=== PATIENT | female | born 1935 | race Caucasian/White ===

== ENCOUNTER → 2017-05-29 | Outpatient (CLI) | payer BC, MEDICARE ==
[2015-05-19 08:10] VITALS: BP 135/75
[~2017-05-29] MED LIST: ACET80TA52 PO; AMLO5TAB2 PO; ASCO500T PO; CETI10TA22 PO; CETI1TAB7 PO; CLIN75CA2 PO; FERR-26 PO; HYDR-2165 PO; HYDR12.53 PO; HYDR12.58 PO; IOHEXOL 240 MG/ML 50ML VIAL. PO ONE; IOHEXOL 300 MG/ML 75 ML VIAL IV ONE; LISI2.5T PO; LISI40TA PO; MECL12.52 PO; METO1TAB28 PO; METO50TA2 PO; MONT10TA6 PO; MONT4GRA2 PO; OMEP10CA3 PO; OMEP40CA5 PO; PANT40TA3 PO; SENN8.6C2 PO; SODI88SP5 NS; SUCR1ORA11 PO
[2017-05-29 09:34] LABS: CREATININE 0.6 mg/dL (0.6-1.0); GFR 95.9
--- NOTE | 2017-05-29 11:42 | RAD ---
CT chest, abdomen and pelvis with contrast 05/29/2017. Indication: Lymphoma Comparison: Head CT 05/25/2016, 10/28/2015 Technique: Multiple axial CT images of the chest, abdomen and pelvis were obtained without intravenous contrast. Coronal and sagittal reformats are provided. 75 mL of Omnipaque 300 were administered intravenously. Findings: There is a 4 mm hypodense nodule in the right thyroid gland. There are no pathologically enlarged lymph nodes in the axilla, mediastinum or hilar regions. Heart is borderline enlarged. Thoracic aorta is normal in course and caliber. Descending thoracic aorta measures 3.6 cm. Normal anatomic variant branching of the thoracic aorta and brachycephalic vessels is noted with a gastroesophageal aberrant right subclavian artery. Small diverticula is identified at the base of the aberrant right subclavian artery. There is no pericardial effusion. Three-vessel coronary artery vascular calcic dictation is present. No suspicious pulmonary nodules are identified. There is subsegmental atelectasis at the left lung base. No pleural effusions, pulmonary vascular congestion or pneumothorax. Abdomen/pelvis: Liver is homogeneous without evidence for focal mass lesion. Spleen, right adrenal gland, and pancreas are normal in appearance. There is mild fusiform thickening of the medial limb of the left adrenal gland, stable. Gallbladder is present without radiopaque gallstones. The abdominal aorta is normal in course and caliber with moderate atherosclerotic desiccation. There are no pathologically enlarged lymph nodes in the abdomen or pelvis. There is no free intraperitoneal air or free fluid. The kidneys enhance symmetrically. A small extrarenal pelvis is identified on the right. Suspect a 3 mm nonobstructing calculus in the inferior pole the left kidney. No calculi are identified in the ureters or urinary bladder. Urinary bladder is within normal limits given degree of distention. Small and large bowel are normal in caliber without evidence for bowel obstruction. Oral contrast was administered. Opacified small bowel loops are normal without focal wall thickening. Diverticulosis of the sigmoid colon is identified without adjacent inflammatory changes to suggest diverticulitis. Terminal ileum is normal in appearance. Appendix is not definitively visualized, however there are inflammatory changes in the right lower quadrant. There is a patulous esophagus with a small hiatal hernia. There is a small right inguinal hernia containing fat. No pelvic masses are identified. No suspicious osseous lesions are identified. There is grade 1 anterolisthesis of L4 on L5, likely secondary to advanced facet arthropathy. Impression: 1. No pathologically enlarged lymph nodes are identified in the chest, abdomen or pelvis to suggest disease recurrence. 2. Suspect a 3 mm nonobstructing calculus in the inferior pole the left kidney. No hydronephrosis. Small extrarenal pelvis is identified on the right. 3. Diverticulosis without adjacent inflammatory changes to suggest diverticulitis. 4. Small hiatal hernia. 5. Grade 1 anterolisthesis of L4 on L5, likely secondary to advanced facet arthropathy. No suspicious osseous lesions are identified. PQRS Compliance Statement: One or more of the following individualized dose reduction techniques were utilized for this examination: 1. Automated exposure control 2. Adjustment of the mA and/or kV according to patient size 3. Use of iterative reconstruction technique
== END ==
LOC: CT 09:31
PROVIDERS: ATTEND Internal Medicine Hematology & Oncology
DX: E04.1 Nontoxic single thyroid nodule (principal); K44.9 Diaphragmatic hernia without obstruction or gangrene; K57.30 Diverticulosis of large intestine without perforation or abscess without bleeding; Z87.891 Personal history of nicotine dependence
CPT/HCPCS: 36415; 71260; 74177; 82565; Q9966; Q9967

== ENCOUNTER → 2017-09-17 | Outpatient (CLI) | payer BC | END | disposition home or self-care (01) | LOC: RAD 09:49 | DX: M16.11 Unilateral primary osteoarthritis, right hip (principal); M25.751 Osteophyte, right hip | CPT/HCPCS: 73502 ==

== ENCOUNTER → 2018-03-19 | Outpatient (CLI) | payer BC ==
[2015-05-19 08:10] VITALS: BP 135/75
[~2018-03-19] MED LIST changes: +ACET80TA38 PO; -ACET80TA52 PO; -FERR-26 PO; +FERR325T14 PO; -IOHEXOL 240 MG/ML 50ML VIAL. PO ONE; -IOHEXOL 300 MG/ML 75 ML VIAL IV ONE; +LISI-130 PO; -LISI40TA PO; -METO50TA2 PO; +METO50TA6 PO
--- NOTE | 2018-03-19 17:30 | RAD ---
History: Right ankle and foot pain and swelling. No known injury. Comparison: None. Findings: AP, lateral, and oblique views of the right ankle. Lateral ankle soft tissue swelling is seen. No acute fracture or dislocation is identified. Mild tibiotalar degeneration is seen. Small plantar calcaneal and Achilles tendon insertional enthesophytes are seen. Arterial calcifications are present. AP, lateral, and oblique views of the right foot. Moderate-severe hallux valgus is seen. Mild 1st MTP degeneration is seen. Small ossific density is seen adjacent to the 1st metatarsal head, may be small displaced osteophyte. No acute fracture or dislocation is identified. Mild midfoot degeneration is seen. Impression: 1. No acute osseous traumatic injury identified in the right ankle or right foot. 2. Lateral ankle soft tissue swelling. 3. Mild tibiotalar degeneration. 4. Moderate-severe hallux valgus. Electronically signed by: Moe Parker MD (03/19/2018 5:26 PM) [email or web address]
== END | disposition home or self-care (01) ==
LOC: RAD 12:44
PROVIDERS: ATTEND Internal Medicine
DX: M79.89 Other specified soft tissue disorders (principal); M20.11 Hallux valgus (acquired), right foot; M19.071 Primary osteoarthritis, right ankle and foot; E55.9 Vitamin D deficiency, unspecified; E78.5 Hyperlipidemia, unspecified; I12.9 Hypertensive chronic kidney disease with stage 1 through stage 4 chronic kidney disease, or unspecified chronic kidney disease; N18.2 Chronic kidney disease, stage 2 (mild); Z86.2 Personal history of diseases of the blood and blood-forming organs and certain disorders involving the immune mechanism; Z87.891 Personal history of nicotine dependence; Z90.710 Acquired absence of both cervix and uterus
CPT/HCPCS: 73610; 73630

== ENCOUNTER → 2018-05-14 | Outpatient (CLI) | payer BC ==
[2015-05-19 08:10] VITALS: BP 135/75
[~2018-05-14] MED LIST changes: -AMLO5TAB2 PO; +AMLO5TAB7 PO
--- NOTE | 2018-05-14 11:18 | CARD ---
MR#: [id number] Date of Study: 05/14/2018 Ordering Physician: IRWIN SIM, Referring Physician: IRWIN SIM, Tech: Suma Rosales RDCS APPROVED REPORT EXAM: Two-dimensional and M-mode echocardiogram with Doppler and color Doppler. Other Information Quality : Fair INDICATION Exertional Dyspnea 2D DIMENSIONS RVDd2.9 (2.9-3.5cm)Left Atrium(2D)4.0 (1.6-4.0cm) IVSd1.3 (0.7-1.1cm)Aortic Root(2D)2.3 (2.0-3.7cm) LVDd3.6 (3.9-5.9cm)LVOT Diameter2.0 (1.8-2.4cm) PWd1.2 (0.7-1.1cm)LVDs2.2 (2.5-4.0cm) FS (%) 30.0 %SV39.6 ml LVEF(%)60.0 (>50%) Aortic Valve AoV Peak Hugo.132.8cm/sAoV VTI32.7cm AO Peak GR.7.1mmHgLVOT Peak Hugo.83.1cm/s LVOT VTI 21.17cmAO Mean GR.4mmHg LOUISE (VMAX)2.26rj6GTN (VTI)2.09cm2 Mitral Valve MV E Bnsxvcfe634.5cm/sMV DECEL ODVP055pl MV A Zacisdef87.2cm/sMV JOO74up E/A Ratio1.2MVA (PHT)3.39cm2 TDI E/Lateral E'20.4E/Medial E'20.4 Tricuspid Valve TR P. Yirrwhix515fa/sRAP FUOZQQLE9daWr TR Peak Gr.06kkXcVFCB82caTy Pulmonary Vein S1 Adtmpbya56.6cm/sD2 Uqitwcid92.4cm/s LEFT VENTRICLE The left ventricle is normal size. There is mild concentric left ventricular hypertrophy. The left ve ntricular systolic function is normal . The Ejection Fraction is 60-65%. There is normal LV segmental wall motion. Transmitral Doppler flow pattern is Grade II-pseudonormal filling dynamics. RIGHT VENTRICLE The right ventricle is normal size. The right ventricular systolic function is normal. ATRIA The left atrium is mildly dilated. The right atrium is mildly dilated. 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 There is no Doppler evidence for an atrial septal defect. AORTIC VALVE The aortic valve is calcified but opens well. Doppler and Color Flow revealed trace aortic regurgitat ion. There is no significant aortic valvular stenosis. MITRAL VALVE The mitral valve is mildly thickened but opens well. Posterior mitral annular calcification is mild. There is no evidence of mitral valve prolapse. There is no mitral valve stenosis. Doppler and Color-f low revealed mild mitral regurgitation. TRICUSPID VALVE The tricuspid valve is normal in structure and function. Doppler and Color Flow revealed mild tricusp id regurgitation. There is moderate pulmonary hypertension. The PA pressure was estimated at 41 mmHg. There is no tricuspid valve stenosis. PULMONIC VALVE The pulmonic valve is not well visualized. Doppler and Color Flow revealed trace to mild pulmonic shantelle vular regurgitation. There is no pulmonic valvular stenosis. GREAT VESSELS The aortic root is normal in size. The ascending aorta is mildly dilated at 3.4 cm. The IVC is normal in size and collapses >50% with inspiration. PERICARDIAL EFFUSION There is no evidence of significant pericardial effusion. Critical Notification Critical Value: No <Conclusion> The left ventricular systolic function is normal . The Ejection Fraction is 60-65%. There is normal LV segmental wall motion. The interatrial septum is aneurysmal. There is no Doppler evidence for an atrial septal defect. The left atrium is mildly dilated. Mild mitral regurgitation. Mild tricuspid regurgitation. The PA pressure was estimated at 41 mmHg. There is no evidence of significant pericardial effusion. Signed by : Grupo Salazar, Electronically Approved : 05/14/2018 11:17:34
--- NOTE | 2018-05-15 08:29 | RAD ---
MR#: [id number] Date of Study: 05/14/2018 Ordering Physician: IRWIN SIM, Referring Physician: IRWIN SIM, Tech: CALLI Bah, RDKS, RTR APPROVED REPORT Patient Location : OUT-PATIENT Indications Lower Extremity Pain : Bilateral Findings Grayscale images of the bilateral greater and lesser saphenous veins were obtained for evidence of re flux. No obvious thrombus is noted on limited imaging. The right great saphenous vein measures 7.7 mm and does not show any evidence of reflux. The left gre at saphenous vein measures 7.9 mm and does not show any evidence of reflux. The left small saphenous vein is not visualized and the right small saphenous vein does not reveal an y evidence of reflux Critical Notification Critical Value: No <Conclusion> Negative for reflux in the bilateral greater and lesser saphenous veins Signed by : Carlito Reeder, Electronically Approved : 05/15/2018 08:28:34
--- NOTE | 2018-05-15 08:36 | RAD ---
MR#: [id number] Date of Study: 05/14/2018 Ordering Physician: IRWIN SIM, Referring Physician: IRWIN SIM, Tech: CALLI Bah, RDMS, RTR APPROVED REPORT Patient Location: OUT-PATIENT Indications Rest Pain:Bilaterally VELOCITY AND DOPPLER WAVEFORM ANALYSIS RIGHT cm/secWaveformSeverity LEFT cm/secWaveform Severity pCFA 83.4TriphasicpCFA 110.1Biphasic Prof Fem Art. 75.2 Prof Fem Art. 113.8 Fem Art Prox. 95.4BiphasicFem Art Prox. 79.5Biphasic Fem Art Mid. 73.0BiphasicFem Art Mid. 73.3Biphasic Fem Art Dist. 71.6BiphasicFem Art Dist. 53.6Biphasic Pop Art(Fossa) 62.5BiphasicPop Art(AK) 63.6Biphasic SOFTWARE CLERK Dist. 23.9MonophasicPTA Dist. 22.1Monophasic Per Art Dist.41.6BiphasicPer Art Dist.43.0Biphasic OLEG Dist. 86.2TriphasicATA Dist. 54.2Biphasic DPA 72TriphasicDPA 113Biphasic Findings Grayscale images of the bilateral lower extremity arterial vessels reveal mild diffuse anthracotic pl aque. Spectral waveforms from the common femoral to the below-knee vessels are mostly triphasic and biphasi c in nature. Velocities are within normal limits. Of note, the bilateral posterior tibial vessels demonstrate diminished monophasic waveforms suggestiv e either of a congenitally diminutive posterior tibial artery versus bilateral posterior tibial obstr uctive disease. Nonetheless, there is 2 vessel runoff below the knee. Critical Notification Critical Value: No <Conclusion> 1. No high-grade flow limiting stenosis above the knee. Suspect either congenitally diminutive waterfront director ior tibials versus occluded posterior tibials bilaterally with 2 vessel runoff below the knee. Signed by : Carlito Reeder, Electronically Approved : 05/15/2018 08:35:56
--- NOTE | 2018-05-15 08:43 | RAD ---
MR#: [id number] Date of Study: 05/14/2018 Ordering Physician: IRWIN SIM, Referring Physician: IRWIN SIM, Tech: CALLI Bah, [facility], RTR APPROVED REPORT Bilateral Lower Extremity Venous Study for DVT Patient Location: OUT-PATIENT Indications Lower Extremity Pain: Lower Extremity Edema: Findings The bilateral lower extremity deep veins were evaluated for thrombus with color Doppler, spectral and grayscale images. On the right the grayscale images of the common femoral, superficial femoral and popliteal veins do n ot demonstrate any evidence of thrombus and these veins appear to be compressible. The below-knee vei ns were not well visualized but grossly appear to be compressible. Spectral imaging and color Doppler do not reveal any evidence of obstruction to flow with normal respirophasic variation above the knee . Below the knee there is spontaneous flow noted. On the left, the grayscale images of the common femoral, superficial femoral and popliteal veins do n ot demonstrate any evidence of thrombus and these veins appear to be compressible. The below-knee vei ns again were not well visualized but grossly appear to be compressible. Spectral imaging and color D oppler do not reveal any evidence of obstruction to flow with normal respirophasic variation above th e knee. The below-knee veins demonstrate spontaneous flow. Critical Notification Critical Value: No <Conclusion> Technically limited images but grossly no evidence of bilateral lower extremity DVT Signed by : Carlito Reeder, Electronically Approved : 05/15/2018 08:42:29
== END | disposition home or self-care (01) ==
LOC: ECHO 08:48
PROVIDERS: ATTEND Internal Medicine Cardiovascular Disease
DX: I08.1 Rheumatic disorders of both mitral and tricuspid valves (principal); I27.20 Pulmonary hypertension, unspecified; M79.604 Pain in right leg; M79.605 Pain in left leg; R22.42 Localized swelling, mass and lump, left lower limb; R22.41 Localized swelling, mass and lump, right lower limb
CPT/HCPCS: 93306; 93925; 93970

== ENCOUNTER → 2019-11-21 | Outpatient (CLI) | payer BC ==
[2015-05-19 08:10] VITALS: BP 135/75
[~2019-11-21] MED LIST changes: +AMLO5TAB10 PO; -AMLO5TAB7 PO; +ASCO-219 PO; -ASCO500T PO; -CETI10TA22 PO; +CETI10TA24 PO; -HYDR12.53 PO; +HYDR12.575 PO; -MECL12.52 PO; +MECL12.573 PO; +MONT10TA49 PO; -MONT10TA6 PO; -OMEP10CA3 PO; +OMEP10CA4 PO; +OMEP40CA45 PO; -OMEP40CA5 PO; -PANT40TA3 PO; +PANT40TA77 PO; -SUCR1ORA11 PO; +SUCR1ORA14 PO
--- NOTE | 2019-11-21 13:00 | KCIC ---
Examination: HIP LEFT 2 VIEW History: Chronic left hip pain Comparison/Correlation: None Findings: Frontal view of the left hip and frog-leg lateral view of the left upper provided. Marked osteopenia is present. Left hip joint space is normal. Spurring about the left acetabulum is present. No displaced fracture or bone destruction. Vascular calcifications are present. Impression: No acute process. Consider further evaluation with MRI or CT if occult fracture or other suspicious occult process is a persistent concern. Electronically signed by: Roel Pascual MD (11/21/2019 12:57 PM) [id number]
== END | disposition home or self-care (01) ==
LOC: KCIC 12:21
PROVIDERS: ATTEND Internal Medicine
DX: M85.88 Other specified disorders of bone density and structure, other site (principal); M77.8 Other enthesopathies, not elsewhere classified
CPT/HCPCS: 73502

== ENCOUNTER → 2019-12-17 | Outpatient (CLI) | payer BC ==
[2015-05-19 08:10] VITALS: BP 135/75
[~2019-12-17] MED LIST changes: -ASCO-219 PO; +ASCO500T53 PO
--- NOTE | 2019-12-17 11:38 | RAD ---
LUMBAR SPINE WO CONTRAST History: Low back pain. Left leg radiculopathy. Technique: Multiplanar, multi sequential MR imaging was performed of the lumbar spine. Comparison: June 25, 2014 Findings: Grade 1 anterolisthesis L4 on L5. Mild retrolisthesis L1 on L2 and L2 on L3. Normal vertebral body height. No fracture. Degenerative endplate edema most prominent L2-L3. Edema within the left L5 pedicle, likely due to degenerative changes. Conus terminates at the normal location. No evidence of nerve root clumping. T12-L1: Broad-based disc bulge. Minimal canal narrowing. Moderate facet arthropathy. Mild neuroforaminal narrowing. L1-L2: Broad-based disc bulge. Moderate facet arthropathy. Moderate to severe canal narrowing. Mild bilateral neuroforaminal narrowing. L2-L3: Broad-based disc bulge. Moderate facet arthropathy. Severe canal narrowing. Mild bilateral neuroforaminal narrowing. L3-L4: Broad-based disc bulge. Advanced facet arthropathy. Moderate to severe canal narrowing. Moderate bilateral neuroforaminal narrowing. Anterolisthesis. Disc uncovering. L4-L5: Broad-based disc bulge with superimposed left foraminal disc protrusion. Advanced facet arthropathy. Severe canal narrowing with nerve root compression of the thecal sac. Moderate right and severe left neuroforaminal narrowing. L5-S1: Small disc bulge. Mild facet arthropathy. No canal narrowing. No neuroforaminal narrowing. Compared with the prior examination the degenerative findings and canal narrowing as well as neuroforaminal narrowing are progressed. Impression: 1. Advanced multilevel lumbar spondylosis, progressed compared to 2014. 2. Grade 1 anterolisthesis L4 on L5 contributing to severe canal narrowing with nerve root compression in the thecal sac. 3. Additional multilevel moderate to severe canal narrowing L1-L2, L2-L3 and L3-L4. 4. Multilevel neural foraminal narrowing most severe left L4-L5. Electronically signed by: Tima Elizondo DO (12/17/2019 11:35 AM) [id number]
== END | disposition home or self-care (01) ==
LOC: MRI 10:12
PROVIDERS: ATTEND Orthopaedic Surgery
DX: M47.25 Other spondylosis with radiculopathy, thoracolumbar region (principal); M47.26 Other spondylosis with radiculopathy, lumbar region; M47.27 Other spondylosis with radiculopathy, lumbosacral region; M48.061 Spinal stenosis, lumbar region without neurogenic claudication
CPT/HCPCS: 72148

== ENCOUNTER → 2020-01-14 | Outpatient (CLI) | payer BC ==
[2015-05-19 08:10] VITALS: BP 135/75
[~2020-01-14] MED LIST changes: +BIOT1CAP3 PO; +CINN500C2 PO; +IOHEXOL 180 MG/ML 10 ML VIAL. ONE; +OMEG1CAP38 PO; +TURM500C4 PO; +Vitamin d3; +WOMENS MULTIVITAMIN; +methylPREDNISolone ACETATE 40 MG/ML VIAL. ONE; +methylPREDNISolone ACETATE 80 MG/ML VIAL. ONE
--- NOTE | 2020-01-14 13:14 | PAIN ---
DATE OF SERVICE: 01/14/2020 INITIAL CONSULTATION FOR PAIN CLINIC CHIEF COMPLAINT: Low back and left lower extremity pain. HISTORY OF PRESENT ILLNESS: This is an 84-year-old female who presents with history of pain in the low back and left lower extremity for many years, worse over the past year or two. The patient has had previous MRI scans, which she reports showed bulging disks in the past, most recently in 2013. 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 The patient reports it is aching, dull at times, stabbing and shooting, constant in the low back, left lower extremity, posterior gluteus, lateral thigh, anterior thigh, medial thigh, medial lower leg and lateral lower leg, also in the calf, worse with standing 1-2 hours of working can cause extreme pain and she has been trying to sit more and lay down. The patient reports it generally does not awaken her from sleep at night, does not affect her bowel or bladder control, but does affect her ability to walk. She uses a cane, which she uses at home and a walker, sometimes as well. She has a cane with her today. The patient has tried trigger point injections in the past in her Orthopedics office, which helped mildly in the left hip and she also started physical therapy yesterday, which she feels will be helpful, but she does not attend any of the exercises yet. The patient reports her disability rating from 0-10, 10 being the worst, is at 9 with family and home responsibilities, 7 with occupation, 6 with self-care and 0 with life support activities. The patient did have MRI scan of the lumbar spine showing advanced multilevel lumbar spondylosis, progressive since 2013, grade 1 anterolisthesis L4 on L5 contributing to severe canal narrowing with nerve root compression and severe canal narrowing with nerve root compression of the thecal sac at the L4-L5 level, moderate right and severe left neural foraminal narrowing. The patient reports no loss of motor function, but significant fatigability and tired feeling in the left leg with walking and standing. PAST MEDICAL HISTORY: Significant for hypertension, arthritis, osteoporosis, lymphoma, status post chemotherapy, quit smoking in 2004. PREVIOUS SURGERY: Include hysterectomy, tonsillectomy, deviated septum repair, hammertoe correction, Port-A-Cath for chemotherapy in 2015. CURRENT MEDICATIONS: Include metoprolol, amlodipine, daily vitamins, cinnamon, vitamin D3. ALLERGIES: The patient has no known drug allergies. FAMILY HISTORY: Significant for no major medical problems or conditions that the patient is aware of. SOCIAL HISTORY: The patient does not drink alcohol, does not smoke, quit many years ago, does not use any illegal, illicit or recreational drugs. She is , lives with her spouse, lives locally in [place], [place]. Works as a landlord again manages many properties where she is on her feet quite a bit during her working day and traveling fair amount between the properties as well. REVIEW OF SYSTEMS: The patient's review of systems is positive for those items mentioned in history of present illness. All systems reviewed and otherwise negative. It is complete, full and well documented on the patient's chart. PHYSICAL EXAMINATION: VITAL SIGNS: The patient's blood pressure 171/97, pulse 74, respirations 16, temperature is 98.5 degrees Fahrenheit, height is 5 feet 4 inches, weight is 176 pounds. GENERAL: The patient is awake, alert, oriented, appropriate, very pleasant demeanor. HEENT: Shows normocephalic, atraumatic. Extraocular movements are intact and symmetrical. Oral cavity shows mucous membranes moist and pink. Dentition is intact. NECK: Shows anterior throat supple without palpable lymphadenopathy noted. Swallow reflex symmetrical. CHEST: Shows normal on inspection. Breath sounds are clear bilaterally. No rales, rhonchi or wheezes auscultated. HEART: Shows S1, S2 clear. No murmurs auscultated. ABDOMEN: Soft, nontender, nondistended. No palpable organomegaly is noted. No rebound or guarding demonstrated. BACK: Shows spine grossly in the midline. The patient's back shows spine grossly in midline. Normal appearing thoracic kyphosis and lumbar lordotic curvature with palpation. Lower lumbar paraspinous musculature shows symmetrical, but with palpation shows some moderate tenderness diffusely throughout the upper, middle and lower distribution of paraspinous muscles, but appears symmetrical, no evidence of atrophy, hypertrophy, no trigger points or asymmetry. No tenderness over the spinous processes, sacrum or sacroiliac regions. The patient has good rotational motion of lumbar spine, both laterally as well as extension and flexion without difficulty. EXTREMITIES: The patient's lower extremities show deep tendon reflexes at 2+ in the patellar, 1+ tendo-calcaneus tendons. Motor exam is strong with 5/5 dorsiflexion, extension on the right and 4/5 on the left. Quadriceps and hamstring flexion likewise 4/5 left, 5/5 on the right. Peripheral pulses are 1+ posterior tibia. No peripheral edema is noted. Straight leg raise noted to be very mildly positive about 45 degrees on the left, but only on the left, the right side is negative. Gaenslen's and Juan Miguel's maneuvers are negative bilaterally. The patient is able to stand, stand on her toes, loses balance with putting all of her weight on her left foot, does walk with a fairly antalgic gait favoring the left lower extremity using a cane in her right hand to ambulate. SKIN: Shows warm and dry, good turgor. No edema. No sores, rashes or bruising throughout. IMPRESSION: 1. This is an 84-year-old female with long history of low back pain, left lower extremity pain, worse over the past 6 months, status post physical therapy starting yesterday. 2. MRI scan of lumbar spine as noted. 3. Arthritis. 4. Hypertension. 5. History of lymphoma. PLAN: Options were discussed with the patient including conservative medical managements, physical therapies and interventional techniques. She would like to pursue interventional techniques. We discussed a lumbar epidural steroid injection using description as well as anatomical models to describe the procedure. Risks were then discussed including, but not limited to bleeding, infection, possibility of epidural hematoma, subsequent neurological compromise, dural puncture, headaches, spinal cord and/or nerve damage, side effects of steroid medication and poor results regarding pain control. The patient understands and wished to proceed. The patient will return to clinic in approximately 2 weeks for followup, was counseled on return appointment, activity level and side effects to be aware of. DIAGNOSES: Lumbar radiculopathy with lumbar degenerative disk disease, lumbar spinal stenosis. PROCEDURE: Lumbar epidural steroid injection, translaminar approach at the L4-L5 level using C-arm fluoroscopic guidance under sterile prep and drape using local anesthetic. MEDICATION INJECTED: A total of 120 mg Depo-Medrol plus 10 mL preservative-free normal saline and 2 mL of contrast. CONDITION AT DISCHARGE: Stable. The patient well, had no complications. TIMA AMBRIZ MD DR: CHANTE/medardo JOB#: [id number] / [id number] FAVIO Patel MD
== END ==
LOC: PNCL 11:34
PROVIDERS: ATTEND Anesthesiology
DX: M51.16 Intervertebral disc disorders with radiculopathy, lumbar region (principal); M48.061 Spinal stenosis, lumbar region without neurogenic claudication; I10 Essential (primary) hypertension; Z87.891 Personal history of nicotine dependence; Z90.710 Acquired absence of both cervix and uterus; Z98.890 Other specified postprocedural states
CPT/HCPCS: 62323; J1030; J1040; Q9965

== ENCOUNTER → 2020-01-28 | Outpatient (CLI) | payer BC ==
[2015-05-19 08:10] VITALS: BP 135/75
--- NOTE | 2020-01-28 12:14 | PAIN ---
DATE OF SERVICE: 01/28/2020 PROGRESS NOTE FOR PAIN CLINIC DIAGNOSES: Lumbar radiculopathy with lumbar degenerative disk disease and lumbar spinal stenosis. HISTORY OF PRESENT ILLNESS: The patient is an 85-year-old female who returns for followup status post lumbar epidural steroid injection x 1. The patient reports she is about 50% better with pain in the low back and the left lower extremity, still in the posterior hip and gluteus, lateral thigh, anterior thigh, medial thigh with some spasms, but the pain is much less. The patient reports it is better with walking, standing and changing positions, doing household activities. Reports that the spasms are much better than they were and the sharp pain is gone. The patient reports she still has some pain in the leg and left low back, described as an 8 on a scale of 10 at its worst over the past week, 7-8 at its worst, 5-8 on average and 2 at its least and is a 5 today. The patient reports no new motor or sensory deficits, no new bowel or bladder incontinence or other complaints. Describes the pain as stabbing and sharp, on and off, worse with sitting and trying to walk. PHYSICAL EXAMINATION: VITAL SIGNS: The patient's blood pressure is 137/81, pulse 75, respirations 16, temperature is 97.7 degrees Fahrenheit, height is 5 feet 4 inches, weight is 173 pounds. GENERAL: The patient is awake, alert, oriented, appropriate, very pleasant demeanor. HEENT: Shows normocephalic, atraumatic. Extraocular movements are intact and symmetrical. Oral cavity: Mucous membranes moist and pink. Dentition is intact. NECK: Shows anterior throat supple without palpable lymphadenopathy noted. Neck shows full rotational motion of cervical spine, both laterally as well as extension and flexion without difficulty. CHEST: Shows normal on inspection. Breath sounds are clear bilaterally. HEART: Shows S1, S2 clear. ABDOMEN: Soft, nontender, nondistended. BACK: Shows spine grossly in the midline. Slight exaggeration of thoracic kyphosis, minor flattening of lumbar lordotic curvature. Lumbar paraspinous muscle shows symmetrical on inspection, on palpation shows some moderate tenderness diffusely without significant radiation. The patient has good rotational motion of lumbar spine, both laterally as well as extension and flexion without significant pain reported. EXTREMITIES: The patient's lower extremities show deep tendon reflexes at 2+ in the patellar, 1+ tendo-calcaneus tendons. Motor exam is approximately 4 on a scale of 5 on the left with dorsiflexion, extension, quadriceps and hamstring flexion and 5/5 on the right. Peripheral pulses are 1+. No peripheral edema bilaterally. Options were discussed with the patient. The patient's old chart was reviewed as her current medication regimen updated. Current review of systems updated today as well. We will proceed with a second in the series of lumbar epidural steroid injection today with fluoroscopic guidance. Risks were again discussed including, but not limited to bleeding, infection, possibility of epidural hematoma, subsequent neurological compromise, dural puncture, headaches, spinal cord and/or nerve damage, side effects of steroid medication and poor results regarding pain control. The patient understands and wished to proceed. The patient will return to clinic in approximately 2 weeks for followup. She was counseled on return appointment, activity level and side effects to be aware of. DIAGNOSES: Lumbar radiculopathy with lumbar degenerative disk disease and lumbar spinal stenosis. PROCEDURE: Lumbar epidural steroid injection, translaminar approach at L4-L5 level using C-arm fluoroscopic guidance under sterile prep and drape using local anesthetic. MEDICATION INJECTED: A total of 120 mg Depo-Medrol plus 10 mL of preservative-free normal saline and 2 mL of contrast. CONDITION AT DISCHARGE: Stable. The patient tolerated the procedure well, had no complications. TIMA AMBRIZ MD DR: CHANTE/medardo JOB#: [id number] / [id number]
== END ==
LOC: PNCL 10:32
PROVIDERS: ATTEND Anesthesiology
DX: M51.16 Intervertebral disc disorders with radiculopathy, lumbar region (principal); M48.061 Spinal stenosis, lumbar region without neurogenic claudication
CPT/HCPCS: 62323; J1030; J1040; Q9965

== ENCOUNTER → 2020-05-11 | Outpatient (CLI) | payer BC ==
[2015-05-19 08:10] VITALS: BP 135/75
[~2020-05-11] MED LIST changes: -CETI10TA24 PO; +CETI10TA74 PO
--- NOTE | 2020-05-11 12:25 | PDOC ---
Progress Note - Pain Clinic Date of Service: DOS: DATE: 05/11/20 TIME: 12:22 Diagnosis: Dx: Lumbar radiculopathy with lumbar degenerative disc disease and lumbar spinal stenosis History or Present Illness: HPI: 85-year-old female returns follow-up status post lumbar epidural straight injection x2. Last seen January 2014 patient reports he did very well initially about 50% improvement overall pain returning down the low back and left lower extremity primarily in the posterior gluteus posterior lateral thigh lateral anterior thigh anterior medial thigh into the calf as well at the ankle patient reports it is anywhere from 7-9 on scale 10 is worse over the past week 5-8 on his average and 3-5 in its least and is a 7 today patient reports it is aching dull across the back in the lumbar distribution radiating down the left leg off-and-on intensity worse with walking standing changing positions initially sh e was a much better with walking and doing household activities try with greater ease and comfort now the pain is returning significantly patient reports no new motor or sensory deficits no new bowel or bladder con's or other complaints. Physical Exam: VS: Pressures 176/97 pulse 80 respirations 18 temperature 98.4 F height 5 feet forges weight is 178 pounds PE: PHYSICAL EXAMINATION: GENERAL: The patient is awake, alert, oriented, appropriate, very pleasant demeanor HEENT: Shows normocephalic, atraumatic. Extraocular movements are intact and symmetrical. Oral cavity: Mucous membranes moist and pink. NECK: Shows anterior throat supple without palpable lymphadenopathy noted. Swallow reflex symmetrical. CHEST: Shows normal on inspection. Breath sounds are clear bilaterally, no rales rhonchi or wheezes auscultated. HEART: Shows S1, S2 clear. No murmurs auscultated. ABDOMEN: Soft, nontender, nondistended, obese. No palpable organomegaly is noted. No rebound or guarding demonstrated. BACK: Shows spine grossly in the midline. Normal-appearing cervical lordotic curvature. There is slightly increased thoracic kyphosis, some minor flattening of the lumbar lordotic curvature. Lumbar paraspinous muscles show symmetrical on inspection, on palpation shows some moderate tenderness diffusely throughout the upper, middle and lower distribution of the paraspinous muscles bilaterally, but without specific trigger points, without radiation of pain. The patient has good rotational motion of the lumbar spine, both laterally as well as extension and flexion without significant difficulty. No tenderness over the spinous processes, sacrum or sacroiliac regions. EXTREMITIES: Lower extremities show deep tendon reflexes 2+ in the patellar and tendo calcaneus tendons. Motor exam is 5 on a scale of 5 with right dorsiflexion, extension, quadriceps and hamstring flexion and 4/5 on the left. Peripheral pulses are 1+ posterior tibial. No peripheral edema is noted bilaterally. Lower extremities are warm and dry to touch, equal in color and appearance. SKIN: Shows warm and dry, good turgor. No edema. No sores, rashes or bruising throughout. Procedure: Procedure: Options were discussed with the patient. Patient chart was reviewed as her current medication regimen updated current review of systems updated today as well. We will proceed with a third in the series lumbar epidural to injection today with fluoroscopic guidance. Risks were discussed including but not limited to: Bleeding, infection, possibility of epidural hematoma and subsequent neurological compromise, dural puncture, headaches, spinal cord and/or nerve damage, side effects of steroid medication, and poor results regarding pain control. Patient understands wished to proceed. Patient return to clinic in possibly 2 weeks for follow-up was counseled as return appointment activity level and side effects to be aware of. Medication Injected: Med Injected: Procedure is lumbar epidural steroid injection under local anesthetic using sterile prep and drape at the L4-5 level using C-arm fluoroscopic guidance in both AP and lateral views medications injected is 120 mg Depo-Medrol + 10 mL preservative-free normal saline and 2 mL contrast- condition at discharge is stable patient tolerated procedure well had no complications. Condition at Discharge: Condition at Discharge: Condition at discharge stable patient tolerated procedure well had no complications. TIMA AMBRIZ MD May 11, 2020 12:25
== END | disposition home or self-care (01) ==
LOC: PNCL 11:29
PROVIDERS: ATTEND Anesthesiology
DX: M51.16 Intervertebral disc disorders with radiculopathy, lumbar region (principal); M48.061 Spinal stenosis, lumbar region without neurogenic claudication; I12.9 Hypertensive chronic kidney disease with stage 1 through stage 4 chronic kidney disease, or unspecified chronic kidney disease; N18.9 Chronic kidney disease, unspecified; E78.5 Hyperlipidemia, unspecified; Z87.891 Personal history of nicotine dependence; Z79.899 Other long term (current) drug therapy; Z82.49 Family history of ischemic heart disease and other diseases of the circulatory system
CPT/HCPCS: 62323; J1030; J1040; Q9965

== ENCOUNTER → 2021-01-25 | Outpatient (CLI) | payer BC ==
[2015-05-19 08:10] VITALS: BP 135/75
[~2021-01-25] MED LIST changes: +AMLO-186 PO; -AMLO5TAB10 PO; -HYDR-2165 PO; +HYDR-3070 PO; +IOHEXOL 180 MG/ML 10 ML VIAL. EPID ONE; -IOHEXOL 180 MG/ML 10 ML VIAL. ONE; +IOHEXOL 300 MG/ML 50 ML VIAL. IT ONE; +LIDOCAINE 1% Multi-Dose 20 ML VIAL. INJ ONE; -MECL12.573 PO; +MECL12.582 PO; -OMEP40CA45 PO; +OMEP40CA7 PO; -methylPREDNISolone ACETATE 40 MG/ML VIAL. ONE; -methylPREDNISolone ACETATE 80 MG/ML VIAL. ONE
--- NOTE | 2021-01-25 13:50 | RAD ---
EXAM: 1. CT myelography lumbar spine with intrathecal contrast. 2. Lumbar spine 4 views with flexion/extension. 3. Fluoroscopically guided lumbar puncture for administration of myelographic contrast. HISTORY: Low back pain. Spinal stenosis, lower extremity radiculopathy. TECHNIQUE: The procedure along with its risks and benefits were explained to the patient. She agreed to proceed. A timeout procedure was performed. The patient was placed prone on the fluoroscopy table. The L5-S1 level was localized. The overlying s kin was sterilely prepped. A 22-gauge spinal needle was advanced into the thecal sac under fluoroscop ic guidance. There are spontaneous return of clear cerebrospinal fluid. 9 mL iodinated myelographic c ontrast was instilled under fluoroscopic control. Administration was slow, as this resulted in pain a nd radicular symptoms given a subtotal myelographic block at L4-5. Instrumentation was withdrawn and a sterile dressing placed. Contrast was advanced superiorly under gravity. 11 fluoroscopic images wer e obtained. Fluoroscopy time 2.3 minutes. There are no immediate complications. CT of the lumbar spine was performed after the intrathecal administration of iodinated contrast. 4 ra diographic views of the lumbar spine were also obtained. One or more of the following individualized dose reduction techniques were utilized for this examination: 1. Automated exposure control. 2. Adjustment of the mA and/or kV according to patient size. 3. Use of iterative reconstruction technique. COMPARISON: 12/17/2019. FINDINGS: Atherosclerotic calcifications are noted. Sigmoid diverticulosis is severe. At neutral, there is a mild thoracolumbar levocurvature. There is grade 2 anterolisthesis at L4-5. Th is increases 1 mm on flexion and reduces 1 mm on extension. There is slight retrolisthesis at and L1- L3. This does not change with flexion or extension. Vertebral body heights are maintained, and no fractures are identified. Degenerative disc disease is severe at L1-2, moderate to severe at T12-L1, moderate at L2-3 and mild to moderate from L3 through L 5. The conus is at L1 and appears normal. Contrast opacification becomes segmentally more limited superior to L4-5 given sequential myelographi c blocks but remains diagnostic. At T11-12, there is no stenosis. At T12-L1, there is a moderate posterior disc-osteophyte complex. There is moderate facet osteoarthri tis and ligamentum flavum hypertrophy. Right neural foraminal stenosis is mild. At L1-2, there is a moderate to large posterior disc-osteophyte complex. Moderate facet and ligamentu m flavum hypertrophy impinge on the central canal from posteriorly. Central canal stenosis is severe with minimal anteroposterior central canal diameter 4 mm. Neural foraminal stenosis is mild on the le ft and moderate on the right. At L2-3, there is a moderate posterior disc-osteophyte complex. Facet and ligamentum flavum hypertrop hy is moderate. Central canal stenosis is moderate to severe. Minimal anteroposterior central canal d iameter is 6 mm. Neural foraminal stenosis is moderate on the left and mild on the right. At L3-4, there is a moderate posterior disc bulge. Facet and ligamentum flavum hypertrophy is moderat e to severe. Central canal stenosis is moderate to severe, worse on the left than right. Minimal ante roposterior central canal diameter is 6 mm. Neural foraminal stenosis is mild bilaterally. At L4-5, facet osteoarthritis is severe. Ligamentum flavum hypertrophy is moderate on the right great er than left. There is a small posterior disc-osteophyte complex and grade 2 anterolisthesis. Central canal stenosis is severe, with effacement of the CSF space and subtotal myelographic block. Neural f oraminal stenosis is moderate on the left. Mass effect on the left L4 nerve root extends lateral to t he foramen. Neural foraminal stenosis is mild to moderate on the right, with mild mass effect on the right L4 nerve root lateral to the foramen. At L5-S1, there is no stenosis. There is a small posterior disc-osteophyte complex. 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 IMPRESSION: 1. 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 This increases slightly on flexion and reduces slightly on extension. 2. Central canal stenosis is severe at L4-5, resulting in subtotal myelographic block. Neural foramin al stenosis is moderate to severe on the left and moderate on the right. 3. Additional central canal stenosis is moderate to severe from L1 through L4 as above. Additional ne ural foraminal stenosis is mild to moderate as above. Electronically signed by: Trixie Petty MD (01/25/2021 1:47 PM) [id number]
== END | disposition home or self-care (01) ==
LOC: RAD 09:39
PROVIDERS: ATTEND Neurological Surgery
DX: M48.061 Spinal stenosis, lumbar region without neurogenic claudication (principal); M51.16 Intervertebral disc disorders with radiculopathy, lumbar region; M47.26 Other spondylosis with radiculopathy, lumbar region; K57.30 Diverticulosis of large intestine without perforation or abscess without bleeding; I10 Essential (primary) hypertension; Z90.710 Acquired absence of both cervix and uterus; Z98.890 Other specified postprocedural states; Z79.899 Other long term (current) drug therapy; Z87.891 Personal history of nicotine dependence
CPT/HCPCS: 62304; 72110; 72132; Q9965

== ENCOUNTER → 2021-04-08 | Outpatient (CLI) | payer BC ==
[2015-05-19 08:10] VITALS: BP 135/75
[~2021-04-08] MED LIST changes: -IOHEXOL 180 MG/ML 10 ML VIAL. EPID ONE; -IOHEXOL 300 MG/ML 50 ML VIAL. IT ONE; -LIDOCAINE 1% Multi-Dose 20 ML VIAL. INJ ONE; -LISI2.5T PO; +LISI2.5T12 PO
--- NOTE | 2021-04-08 16:17 | KCIC ---
INDICATION: Screening for osteopenia/osteoporosis. Reason: POST MENOPAUSAL, SCREENING FOR OSTEOPOROS IS / Spl. Instructions: / History: COMPARISON: None. TECHNIQUE: Bone densitometry was performed through the lumbar spine and proximal femur. IMPRESSION: Lumbar Spine: BMD: 1.7 T-Score: 5.6 Range: Normal Proximal Femur: BMD: 0.95 T-Score: 0 Range: Normal World [employer] Organization Criteria for Bone Density: T-Score: > -1.0: Normal Range < -1.0 to -2.5: Osteopenic Range < -2.5: Osteoporotic Range Electronically signed by: Cheng Yousif MD (04/08/2021 4:15 PM) [id number]
== END ==
LOC: KCIC DEXA 13:59
PROVIDERS: ATTEND Neurological Surgery
DX: Z78.0 Asymptomatic menopausal state (principal)
CPT/HCPCS: 77080